=== PATIENT | female | born 1945 | race African-American/Black ===

== ENCOUNTER 2016-10-18 15:35 | Emergency (ER) | payer BC, OTHER ==
--- NOTE | ~2016-10-18 | EKG ---
PATIENT: ALEJA FLOREZ UNIT #: [id number] Ventricular Rate: 60 BPM Atrial Rate: 60 BPM P-R Interval: 172 ms QRS Duration: 82 ms Q-T Interval: 462 ms QTC Calculation(Bezet): 462 ms P [place]: 20 degrees Calculated R [place]: 0 degrees Calculated T [place]: 42 degrees Diagnosis Line: Normal sinus rhythm Diagnosis Line: Nonspecific ST abnormality Diagnosis Line: Abnormal ECG Diagnosis Line: When compared with ECG of 17-DEC-2014 13:28, Diagnosis Line: T wave inversion no longer evident in Lateral Diagnosis Line: leads Diagnosis Line: Confirmed by LAUREN KINGSLEY MD ([id number]) on 10/19/2016 Diagnosis Line: 5:46:10 AM INTERPRETING MD: SANCHO RIZZO
--- NOTE | ~2016-10-18 | CR72 ---
[facility] A Service of [facility] & [facility] RADIOLOGY TEXT RESULTS PATIENT: ALEJA FLOREZ LOCATION: [facility] : [birth year] UNIT #: [id number] AGE: [address]: Stephan Fabian MD SEX: F ORDER DR: [id number] [facility] [address] [place], [place] [address] [id number] E MR#: [id number] Acc #: [id number] NAME: ALEJA FLOREZ : 1945 SEX: F STUDY DATE/TIME: 10/18/2016 16:31 UNIT: [facility] ROOM: STUDY DESCRIPTION: CR Chest Single View Portable Attending Physician: Stephan Fabian M.D. Ordering Physician: Stephan Fabian M.D. Primary Care Physician: Susanna Rivera M.D. MEDICAL IMAGING REPORT This report is preliminary unless electronic signature is present EXAM Portable chest INDICATION Hypertension for 1 day. Left shoulder and arm pain. COMPARISON 04/24/2016. FINDINGS The lungs are well expanded. There is no airspace consolidation. Heart size normal. Visualized osseous structures are unremarkable. IMPRESSION No active disease. Dictated by... Jaziel Banks M.D. THIS IS AN ELECTRONICALLY VERIFIED REPORT Jaziel Banks M.D. at 10/19/2016 7:34 AM ROB/ran TD: 10/19/2016 06:31 JOB #: [id number] MEDICAL IMAGING REPORT Page 1 of 1 COPY
--- NOTE | ~2016-10-18 | CT71 ---
[facility] A Service [facility] RADIOLOGY TEXT RESULTS PATIENT: ALEJA FLOREZ LOCATION: [facility] : [birth year] UNIT #: [id number] AGE: [address]: Stephan Fabian MD SEX: F ORDER DR: [id number] [place] [id number] [facility]. [place], [place] [address] [id number] E MR#: [id number] Acc #: [id number] NAME: ALEJA FLOREZ : 1945 SEX: F STUDY DATE/TIME: 10/18/2016 21:42 UNIT: [facility] ROOM: STUDY DESCRIPTION: CT Head Wo Contrast Attending Physician: Stephan Fabian M.D. Ordering Physician: Stephan Fabian M.D. Primary Care Physician: Susanna Rivera M.D. MEDICAL IMAGING REPORT This report is preliminary unless electronic signature is present EXAM CT head without contrast INDICATION Headache, hypertension today. PROCEDURE Unenhanced CT head. This CT exam was performed with one or more of the following radiation dose reduction techniques: automatic exposure control, adjustment of mA and/or kV according to patient size, and iterative reconstruction. COMPARISON 10/31/2014 FINDINGS No acute hemorrhage, abnormal mass effect, extraaxial fluid collection or hydrocephalus. No depressed calvarial fracture. The paranasal sinuses and mastoid air cells are clear. IMPRESSION No acute intracranial findings. Dictated by... Robb Patel M.D. THIS IS AN ELECTRONICALLY VERIFIED REPORT Robb Patel M.D. at 10/19/2016 9:55 PM UMU/taya TD: 10/19/2016 11:14 JOB #: [id number] [facility] A Service [facility] RADIOLOGY TEXT RESULTS PATIENT: ALEJA FLOREZ LOCATION: [facility] : [birth year] UNIT #: [id number] AGE: [address]: Stephan Fabian MD SEX: F ORDER DR: MEDICAL IMAGING REPORT Page 1 of 1 COPY
[~2016-10-18 15:35] MED LIST: AMITRIPTYLINE H25 MG PO; AMITRYPTYLINE PO; ATENOLOL PO; ATENOLOL50 MG PO; BENTYL10 MG DOB; CIPRO PO; GABAPENTIN300 MG PO; GABAPENTIN600 MG PO; GLUCOPHAGE500 M1 PO; GLUCOPHAGE500 MG PO; HYDRALAZINE HCL50 MG PO; HYDROCHLOROTHIA25 MG PO; HYDROCODON-ACE1 EAC5 PO; LIPITOR40 MG PO; MAXZIDE 37.5 M1 EACH PO; METFORMIN HCL500 M1 PO; NAPROXEN PO; NEURONTIN300 MG PO; NIFEDIPINE ER90 M1 PO; NORCO 5/325 TAB1 TAB PO; NORVASC10 MG PO; OMEPRAZOLE20 M2 PO; PEPTO-BISM525 MG/15 PO; PHENERGAN25 M1 DOB; PRAVASTATIN SOD80 MG PO; PREDNISONE PO; PRILOSEC20 MG PO; PRINIVIL40 MG PO; TRIAMTERENE-HCT1 TA6 PO; ZOFRAN ODT4 MG PO; ZOFRANODT PO
[2016-10-18] MEDS ORDERED: PATIENT'S PHARMACY (16:18)
[2016-10-18] MEDS ORDERED: HYDROCORTISONE30 G7 (16:18)
[2016-10-18] MEDS ORDERED: LIPITOR40 MG PO (16:19)
[2016-10-18] MEDS ORDERED: GLUCOPHAGE500 MG PO (16:19)
[2016-10-18] MEDS ORDERED: FLONASE 0.05% N16 GM (16:20)
[2016-10-18] MEDS ORDERED: HYDROCODON-ACE1 EAC5 PO (16:20)
[2016-10-18] MEDS ORDERED: NORVASC10 MG PO (16:21)
[2016-10-18] MEDS ORDERED: LISINOPRIL PO (16:21)
[2016-10-18] MEDS ORDERED: ATENOLOL PO (16:21)
[2016-10-18] MEDS ORDERED: LASIX20 MG PO (16:23)
[2016-10-18 16:56] LABS: BASOPHIL# 0.1 X10e3 (0-0.3); BASOPHIL% 0.7 % (0-2.5); EOSINOPHIL# 0.2 X10e3 (0-0.7); HEMOGLOBIN 11.9 gm/dL (12.0-16.0); LYMPHOCYTE# 2.2 X10e3 (1.0-3.5); LYMPHOCYTE% 24.3 % (17.0-45.0); MEAN CELL VOLUME 85.5 FL (83-96); MEAN CORPUSCULAR HEMOGLOBIN 27.6 PG (28-34); MEAN CORPUSCULAR HGB CONC 32.3 g/dL (30-36); MEAN PLATELET VOLUME 8.2 FL (6.5-11.5); MONOCYTE# 0.7 X10e3 (0-1.0); MONOCYTE% 7.5 % (3.0-12.0); NEUTROPHIL# 5.9 X10e3 (1.5-7.1); NEUTROPHIL% 65.5 % (40-75); PLATELET COUNT 256 X10e3 (140-420); RED BLOOD COUNT 4.33 X10e (3.90-5.30); RED CELL DISTRIBUTION WIDTH 15.8 % (11.0-15.5); WHITE BLOOD COUNT 9.1 X10e3 (4.0-10.5)
[2016-10-18 16:57] LABS: DIFF IND NO
[2016-10-18 16:58] LABS: POC - CKMB 1.1 ng/mL (0.0-7.9); POC - TROPONIN <0.05 ng/mL (<=0.05)
[2016-10-18 17:17] LABS: ALBUMIN SERUM 3.4 g/dL (3.5-5.0); BILIRUBIN, DIRECT 0.1 mg/dL (0.0-0.2); BILIRUBIN,INDIRECT 0.8 mg/dL (0.0-0.9); BILIRUBIN,TOTAL 0.9 mg/dL (0.2-2.0); BUN/CREATININE RATIO 15.55; CALCIUM SERUM 9.1 mg/dL (8.4-10.2); CREATININE SERUM 0.9 mg/dL (0.6-1.4); GLOM FILT RATE Estimated 75.1 mL/min (>60); POTASSIUM 3.2 mmol/L (3.5-5.1); PROTEIN TOTAL SERUM 6.5 g/dL (6.0-8.3)
[2016-10-18 19:44] LABS: POC - CKMB 1.1 ng/mL (0.0-7.9); POC - TROPONIN <0.05 ng/mL (<=0.05)
[2016-10-18 23:01] LABS: URINE SOURCE CLEAN CATCH
[2016-10-18 23:08] LABS: URINE APPEARANCE CLEAR; URINE BILIRUBIN NEG (NEG); URINE BLOOD NEG (NEG); URINE COLOR YELLOW; URINE GLUCOSE NEG (NEG); URINE KETONE NEG (NEG); URINE LEUKOCYTE ESTERASE NEG (NEG); URINE NITRATE NEG (NEG); URINE PH 5.5 (5-8); URINE PROTEIN 2+ (NEG); URINE SPECIFIC GRAVITY 1.014 (1.003-1.035); URINE UROBILINOGEN 0.2 MG/DL (NEG)
[2016-10-18 23:11] LABS: CULTURE INDICATED? NO; URBCS1 AUWI 0-2 /[HPF] (0-2); URINE BACTERIA AUWI NEG (NEGATIVE); URINE SQUAMOUS EPITHELIAL CELL NONE SEEN /[HPF]; UWBCS1 AUWI 0-2 (0-5)
== END 2016-10-18 23:40 | disposition home or self-care (01) ==
LOC: CED 15:35
PROVIDERS: Emergency Medicine
DX: I10 Essential (primary) hypertension (principal); R07.9 Chest pain, unspecified; E11.9 Type 2 diabetes mellitus without complications; Z90.710 Acquired absence of both cervix and uterus; Z98.890 Other specified postprocedural states
CPT/HCPCS: 36415; 70450; 71010; 80048; 80076; 81003; 82553; 84484; 85025; 93005; 96374; 96375; 96376; 99285; J1200; J2765